=== PATIENT | female | born 1960 | race Caucasian/White ===

== ENCOUNTER → 2017-08-18 | Outpatient (CLI) | payer BC ==
--- NOTE | 2017-08-19 09:23 | MM ---
Reason for exam: screening (asymptomatic). Last mammogram was performed 7 years and 5 months ago. History: Patient is postmenopausal. Family history of premenopausal breast cancer in maternal aunt at age 40 and breast cancer in maternal aunt at age 60. Physical Findings: A clinical breast exam by your physician is recommended on an annual basis and results should be correlated with mammographic findings. MG Screening Mammo w CAD Bilateral CC and MLO view(s) were taken. Prior study comparison: March 08, 2010, bilateral digital screening mammogram. There are scattered fibroglandular densities. Asymmetric breast tissue in the left subareolar position is stable. There is no discrete abnormality. ASSESSMENT: Negative, BI-RAD 1 RECOMMENDATION: Routine screening mammogram of both breasts in 1 year.
== END | disposition home or self-care (01) ==
LOC: RADMAMWWP 08:38
PROVIDERS: ATTEND Family Medicine
DX: Z12.31 Encounter for screening mammogram for malignant neoplasm of breast (principal)
CPT/HCPCS: 77067

== ENCOUNTER → 2019-07-19 | Outpatient (CLI) | payer BC ==
--- NOTE | 2019-07-20 08:44 | XR ---
Left shoulder HISTORY: Left shoulder pain 3 views of the left shoulder Hypertrophic changes are present at the acromioclavicular joint. Bone mineralization appears mildly r educed. Left lung apex as visualized is normal. Alignment is maintained. No fracture or dislocation. IMPRESSION: Acromioclavicular joint arthropathy. Shoulder MRI may be of benefit.
== END | disposition home or self-care (01) ==
LOC: RAD 15:30
PROVIDERS: ATTEND Family Medicine
DX: M12.812 Other specific arthropathies, not elsewhere classified, left shoulder (principal)

== ENCOUNTER → 2019-08-06 | Outpatient (CLI) | payer BC ==
--- NOTE | 2019-08-06 16:15 | MR ---
EXAMINATION TYPE: MR shoulder LT wo con DATE OF EXAM: 08/06/2019 COMPARISON: None HISTORY: Left shoulder pain, limited ROM x 8 mos, no trauma Multiplanar multiecho imaging of the left shoulder was performed without contrast. The subscapularis tendon is intact. There is small amount of fluid adjacent to the tendon. Biceps ten don is intact. The glenoid vickie appear intact. There is no evidence of a fracture. There is hypertro phic spurring and edema at the AC joint with subacromial impingement on the supraspinatus tendon and muscle. There are small areas of increased signal in the supraspinatus tendon near the attachment on the greater tuberosity of the humerus. There is no retraction. I see no bony destructive process. The re is no evidence of a fracture. IMPRESSION: Moderate spurring and edema at the AC joint with mild subacromial impingement. Small areas of increased signal in the supraspinatus tendon consistent with intrasubstance tear but n o full-thickness tear seen. No retraction. Small synovial cysts are present along the anterior aspect of the subscapularis tendon.
== END | disposition home or self-care (01) ==
LOC: RADMRIMAIN 10:17
PROVIDERS: ATTEND Family Medicine
DX: M67.814 Other specified disorders of tendon, left shoulder (principal); M25.812 Other specified joint disorders, left shoulder; R60.9 Edema, unspecified